=== PATIENT | female | born 1990 | race Caucasian/White ===

== ENCOUNTER 2024-10-22 04:26 | Emergency (ER) | payer BC, OTHER, SELFPAY ==
[2024-10-22 04:26] VITALS: BMI 31.3
[2024-10-22 04:32] VITALS: BP 164/92; PULSE 87; RESP 18; TEMP 37.1; O2SAT 99
--- NOTE | 2024-10-22 04:36 | XR_ITS ---
Examination: Abdomen sonogram, Limited Date and time of exam: October 22, 2024 at 0518 hrs. Indications: Right upper abdominal pain beginning several hours ago Technique: Real-time kern scale transabdominal sonographic images of the upper abdomen obtained. Findings: 12 mm gallstone Gallbladder wall 0.3 cm no edema Common bile duct 0.3 cm Pancreatic head 2.7 cm Liver 18.6 cm fatty infiltration no focal liver lesions Normal hepatopedal portal venous flow Patent IVC Impression: Cholelithiasis, negative for cholecystitis
--- NOTE | 2024-10-22 04:37 | PD.EDRME ---
Rapid Medical Screening Exam RME Arrival date/time: 10/22/24 04:26 34-year-old female past medical history of bariatric surgery 2 years ago presents emergency department complaining of epigastric pain that radiates towards back with nausea and vomiting that started today. Chief Complaint: Abdominal Pain Time Seen by Provider: 10/22/24 04:32 Vital signs: Vital Signs Temperature 98.7 F 10/22/24 04:32 Pulse Rate 87 10/22/24 04:32 Respiratory Rate 18 10/22/24 04:32 Blood Pressure 164/92 H 10/22/24 04:32 Pulse Oximetry (%) 99 10/22/24 04:32 Oxygen Delivery Method Room Air 10/22/24 04:32 Vital signs reviewed by provider: Yes
[2024-10-22] MEDS: METOCLOPRAMIDE INJ 5 MG/ML VIAL 2 ML 10 MG IM (04:45)
--- NOTE | 2024-10-22 04:48 | PC.NURSE ---
At this time pt states that her pain has decreased. Asked to hold off on pain medication at this time.
[2024-10-22] MEDS: KETOROLAC INJ 60 MG/2 ML VIAL 30 MG IM (05:18)
--- NOTE | 2024-10-22 05:19 | PC.NURSE ---
Before going to US, pt alerted RN that she had changed her mind and wanted pain medication. Stated pain increased to 10/10. Toradol given.
--- NOTE | 2024-10-22 06:19 | PRELIM_ITS ---
Gallbladder ultrasound. October 22, 2024 at 0518 hours Clinical history: Epigastric pain that radiate s towards back.Technique: Grayscale and color flow images of the abdomen are provided. Comparison:No prior study is available for comparison.Findings:The liver is enlarged measuring 18.5 cm with patchy increased echogenicity, likely represent fatty infiltration. No mass or ductal dilatation. The gallbl adder is distended and demonstrates gallstone measuring 1.2 cm is noted, without evidence of gallblad diane wall thickening or pericholecystic fluid.Sonographic Bright sign is positive. The common duct is normal in caliber at 3mm. The body and tail of pancreas are obscured by gas. No free fluid is demonst rated on the submitted images.Impression:Cholelithiasis with acute cholecystitis cannot be excluded.S uggest follow-up with HIDA scan, if clinically indicated.Hepatomegaly with fatty infiltration. Report Electronically Signed By: Sameer Piper 10/22/2024 6:19:21 AM [EST]
--- NOTE | 2024-10-22 06:36 | PD.EDABDPN ---
ED Abdominal Pain RME/HPI General Chief Complaint: Abdominal Pain Stated complaint: ABD PAIN Time seen by provider: 10/22/24 04:32 Arrival date/time: 10/22/24 04:26 34-year-old female with a history of bariatric surgery presents to the emergency room with a chief complaint of 7 out of 10 epigastric pain that radiates towards the back. Patient also states of nausea and vomiting that began this morning. Source: patient Mode of arrival: ambulatory Limitations: no limitations RME / HPI RME / HPI narrative: 10/22/24 04:26 34-year-old female past medical history of bariatric surgery 2 years ago presents emergency department complaining of epigastric pain that radiates towards back with nausea and vomiting that started today. Related Data Home Medications ?Medication ?Instructions ?Recorded ?Confirmed sertraline 50 mg tablet 50 mg PO QDAY 02/01/24 03/07/24 multivitamin 1 tab PO QDAY 03/07/24 03/07/24 Previous Rx's ?Medication ?Instructions ?Recorded hydrocortisone 2.5 % topical cream 1 applic [place] BID #30 grams 03/08/24 with perineal applicator (Anusol-HC) Allergies Allergy/AdvReac Type Severity Reaction Status Date / Time adhesive tape Allergy Severe Hives Verified 10/22/24 04:28 codeine Allergy Severe Hives Verified 10/22/24 04:28 hydrocodone bit Allergy Severe Hives Verified 10/22/24 04:28 Sulfa (Sulfonamide Allergy Severe Blurry Verified 10/22/24 04:28 Antibiotics) Vision tramadol Allergy Severe Hives Verified 10/22/24 04:28 Review of Systems Review of Systems Systems Reviewed: All systems reviewed, normal except as documented Constitutional Constitutional: Reports system reviewed and no additional complaints, except as documented, Denies fatigue, Denies fever(s), Denies headache(s) and Denies weakness Eyes Eyes: Reports system reviewed and no additional complaints, except as documented, Denies blurry vision and Denies change in vision ENT Ears, Nose, Mouth, and Throat: Reports system reviewed and no additional complaints, except as documented, Denies otalgia, Denies headache(s), Denies nasal congestion, Denies throat swelling and Denies vertigo Cardiovascular Cardiovascular: Reports system reviewed and no additional complaints, except as documented, Denies chest pain, Denies dyspnea and Denies dyspnea on exertion Respiratory Respiratory: Reports system reviewed and no additional complaints, except as documented, Denies chest congestion, Denies cough, Denies dyspnea, Denies dyspnea on exertion and Denies wheezing Gastrointestinal Gastrointestinal: Reports system reviewed and no additional complaints, except as documented, Reports abdominal pain, Reports cramping, Reports dyspepsia, Reports nausea and Reports vomiting Genitourinary Genitourinary: Reports system reviewed and no additional complaints, except as documented Musculoskeletal Musculoskeletal: Reports system reviewed and no additional complaints, except as documented and Denies back pain Integumentary/Breasts Skin/Breast: Reports system reviewed and no additional complaints, except as documented and Denies wounds Neurologic Neurologic: Reports system reviewed and no additional complaints, except as documented, Denies confusion, Denies headache(s), Denies lack of coordination, Denies vertigo and Denies weakness Psychiatric Psychiatric: Reports system reviewed and no additional complaints, except as documented, Denies anxiety, Denies confusion, Denies depression, Denies paranoia, Denies suicidal ideation and Denies tactile hallucinations Endocrine Endocrine: Reports system reviewed and no additional complaints, except as documented and Denies fatigue Hematologic/Lymphatic Hematologic/Lymphatic: Reports system reviewed and no additional complaints, except as documented and Denies lymphadenopathy Allergic/Immunologic Allergic/Immunologic: Reports system reviewed and no additional complaints, except as documented, Denies throat swelling, Denies urticaria and Denies wheezing Past Medical History Past Medical History NEUROLOGIC: Negative Neurological Disorders or Seizures CARDIAC: Positive Cardiac Disorders and Hypertension (no longer on meds after weight loss); Negative Congestive Heart Failure, Edema, Cellulitis or Varicose Veins RESPIRATORY: Positive Asthma and Sleep Apnea; Negative Chronic Obstructive Pulmonary Disease (COPD), Tuberculosis or Pulmonary Embolism GASTROINTESTINAL: Positive Gastrointestinal Disorders (gastric sleeve surgery), Hemorrhoids, Gastroesophageal Reflux Disease (no longer has since weight loss) and Obesity; Negative Hepatitis GENITOURINARY: Negative Genitourinary Disorders or Renal Disease REPRODUCTIVE: Positive Previous Pregnancies MUSCULOSKELETAL: Positive Musculoskeletal Disorders (carpal tunnel) and Carpal Tunnel Syndrome ENDOCRINE: Negative Endocrine Disorders, Diabetes Mellitus Type 1 or Diabetes Mellitus Type 2 HEMATOLOGIC: Negative Blood Disorders or Sickle Cell Disease PSYCHO/SOCIAL: Positive Depression and Anxiety OTHER HISTORY: Positive Hospitalization, Blood Transfusions and Chicken Pox; Negative Autoimmune Disease, Shingles, Falls, Blood Transfusion Reaction, Anesthesia Reactions, Chemotherapy, Radiation Therapy, MRSA, Measles, Mumps or Cancer Family History FAMILY HISTORY: Positive Family Psychiatric Problems, Family Respiratory Disorders, Family Cardiac Disorders, Family Surgery and Family Anesthesia Reaction; Negative Family Gastrointestinal Problems or Family Cancer Surgical History SURGICAL: Positive Abdominal Surgery (gastric sleeve), Hysterectomy and Section; Negative Pacemaker Social History SMOKING STATUS: Never smoker ED Exam General Limitations: Present no limitations General appearance: Present alert and in no apparent distress Head Head exam: Present atraumatic Eye Eye exam: Present normal appearance, PERRL and EOMI ENT ENT exam: Present normal exam, normal oropharynx and mucous membranes moist Neck Neck exam: Present normal inspection, full ROM and trachea midline Chest Chest inspection: Present normal inspection and symmetric chest wall rise Respiratory Respiratory exam: Present normal lung sounds bilaterally Cardiovascular Cardiovascular exam: Present regular rate, normal rhythm and normal heart sounds Abdominal Exam Abdominal exam: Present soft, tenderness and normal bowel sounds; Absent distention, guarding, rebound, rigidity, Bright's sign, Rovsing's sign or tenderness at McBurney's Point Abdominal tenderness: Present RUQ and moderate Extremities Exam Extremities exam: Present normal inspection and full ROM Back Exam Back exam: Present normal inspection and full ROM Neurological Exam Neurological exam: Present alert, oriented X3 and CN II-XII intact Psychiatric Psychiatric exam: Present normal affect and normal mood Skin Skin exam: Present warm, dry, intact and normal color Course Quality Measures none Orders Category Date Time Status US gall bladder Stat Exams 10/22/24 04:36 Completed CBC Stat Lab 10/22/24 05:59 Completed CMP [Comprehensive Metabolic Panel] Stat Lab 10/22/24 05:59 Completed HCG,Qualitative Serum Stat Lab 10/22/24 05:59 Completed Lipase Stat Lab 10/22/24 05:59 Completed Urinalysis, C/S if Indicated Stat Lab 10/22/24 05:25 Completed Ketorolac Inj [Toradol Inj] Med 10/22/24 04:36 Discontinued 30 mg IM X1 ONE Metoclopramide Inj [Reglan Inj] Med 10/22/24 04:36 Discontinued 10 mg IM X1 ONE Vital Signs Vital signs: Vital Signs Temperature 98.7 F 10/22/24 04:32 Pulse Rate 87 10/22/24 04:32 Respiratory Rate 18 10/22/24 04:32 Blood Pressure 164/92 H 10/22/24 04:32 Pulse Oximetry (%) 99 10/22/24 04:32 Oxygen Delivery Method Room Air 10/22/24 04:32 O2 saturation 99% within normal limits Abdominal Pain MDM MDM Narrative MDM Narrative:: 34-year-old female with a history of bariatric surgery presents to the emergency room with a chief complaint of 7 out of 10 epigastric pain that radiates towards the back. Patient also states of nausea and vomiting that began this morning. Clinically the patient appears nontoxic and in no apparent distress. Physical examination during my reevaluation shows a 2 out of 10 epigastric pain. Patient states the medication she was given initially really called her pain and she has no longer nauseous or has vomited. Ultrasound was completed and shows a 12 mm gallstone but negative cholecystitis. CBC and CMP were within normal limits bilirubin and liver enzymes are within normal limits. Patient was educated to follow-up with her primary care provider as a referral to a general surgeon to remove this gallstone in an outpatient setting is warranted. Patient was educated return to the emergency room for any episode of worsening signs or symptoms. Patient data External records reviewed:: [facility] previous records Clinical information provided by:: patient Social determinants that could affect healthcare access:: none Patient has the following chronic illnesses:: No chronic illness How is presenting disease/condition affected by chronic disease/condition?: no chronic disease Evaluation data The following diagnostics were reviewed and interpreted by me:: lab results and radiology exam(s) Lab and/or radiology exams considered but not ordered:: Labs and radiology exams considered and ordered Interpretation Summary: Ultrasound gallbladder-12 mm gallstone cholelithiasis Medications / Prescriptions Medications or Prescriptions considered but not ordered:: Medication given Medication administrations:: Medication Administration History Discontinued Medications Ketorolac Tromethamine (Ketorolac Inj 60 Mg/2 Ml Vial) 30 mg IM X1 ONE Stop: 10/22/24 04:37 Last Admin: 10/22/24 05:18 Dose: 30 mg Documented By: CHINA Metoclopramide HCl (Metoclopramide Inj 5 Mg/Ml Vial 2 Ml) 10 mg IM X1 ONE; Protocol Stop: 10/22/24 04:37 Last Admin: 10/22/24 04:45 Dose: 10 mg Documented By: CHINA Medication given Consultations Consultation(s) initiated? (list below): No Diagnosis Differential diagnosis abdominal pain: abdominal pain, acute appendicitis, diverticulitis, gastroenteritis and other (Cholelithiasis/cholecystitis) Most likely diagnosis given after review of the tests above:: Cholelithiasis Admission Indicated Admission indicated?: not indicated Admission Request Was there a request for admission?: No Disposition Plan Disposition Plan: Discharge Discharge Attestation Discharge Attestation: The patient and all family members were given an opportunity to ask questions and understood the discharge instructions. Discharge instructions specifically effects, indications for sooner follow up or return to the emergency department, and the expected course of current diagnosis. Patient condition: Stable Discharge Plan Plan Patient Disposition: HOME (Self Care) Disposition Comment: Stable Prescriptions/Referrals Prescriptions/Med Rec: No Action sertraline 50 mg tablet 50 mg PO QDAY Patient Comments: TAKE 1 TABLET BY MOUTH EVERY DAY multivitamin Tablet 1 tab PO QDAY hydrocortisone [Anusol-HC] 2.5 % cream with perineal applicator 1 applic MN BID Qty: 30 3RF Referrals: Dorita Peres MD [Primary Care Provider] - In 1 week Problem List Clinical Impression: Gallstones Patient/Caregiver Discharge Instructions Education Materials: What Are Gallstones, Treating Gallstones, ED Gallstones with Biliary Colic Additional Instructions: Please follow-up with your primary care provider in the next 24 to 48 hours. Your ultrasound showed it 12 mm gallstone in your gallbladder. This is the cause of your abdominal pain. At this time there is no obstruction or infection. You will need to follow-up with your primary care provider and get a referral to a general surgeon to remove a in an outpatient setting. For any evidence of worsening signs or symptoms or if your pain worsens please return to the emergency room immediately Print Language: Slovenian Stand Alone Forms: Tiffany Award Info., Patient Portal Info Letter WILLIAMS/AMINA Supervising Physician MARKOS Supervising Physician: Dr. Berry
[2024-10-22 06:50] LABS: Collection Type, Urine Clean Catch
[2024-10-22 06:52] LABS: Basophils # (Auto) 0.1 Thou/mm3 (0.0-0.2); Basophils % (Auto) 0 % (0-2.5); Eosinophils # (Auto) 0.1 Thou/mm3 (0.0-0.5); Eosinophils % (Auto) 0 % (0-10); Hematocrit 36.4 % (36.0-46.0); Hemoglobin 11.7 g/dL (12.0-16.0); Immature Granulocytes % (Auto) 1 % (0-0); Immature Granulocytes Auto 0.06 Thou/mm3 (0.00-0.00); Lymphocytes # (Auto) 0.8 Thou/mm3 (1.0-4.8); Lymphocytes % (Auto) 6 % (10-50); Mean Corpuscular HGB Conc 32.1 g/dl (31.0-37.0); Mean Corpuscular Hemoglobin 28.8 pg (25.0-35.0); Mean Corpuscular Volume 90 fL (80-100); Monocytes # (Auto) 0.7 Thou/mm3 (0.0-0.8); Monocytes % (Auto) 6 % (0-12); Neutrophils % (Auto) 87 % (37-80); Nucleated Red Blood Cell % 0 /100 WBC (0); Platelet Count 296 Thou/mm3 (140-440); RDW Standard Deviation 46.5 fL (36.4-46.3); Red Blood Count 4.06 Miln/mm3 (4.00-5.20); White Blood Count 12.6 Thou/mm3 (3.6-11.0)
[2024-10-22 07:33] LABS: Alanine Aminotransferase 28 U/L (10-49); Albumin, Serum 4.6 gm/dL (3.5-5.0); Alkaline Phosphatase 62 U/L (46-116); Anion Gap 7 (7-16); Aspartate Amino Transferase 54 U/L (0-34); BUN/Creatinine Ratio 20 Ratio (12-20); Bilirubin,Total 0.9 mg/dL (0.3-1.2); Blood Urea Nitrogen 18 mg/dL (9-23); Calcium 9.2 mg/dL (8.3-10.6); Calcium (Corrected) 9.2 mg/dL (8.5-10.1); Carbon Dioxide 29.4 mMol/L (20.0-31.0); Chloride 105 mMol/L (98-107); Creatinine (Component) 0.9 mg/dL (0.6-1.3); Estimated Creatinine Clearance 101.8 mL/min (>60); Globulin 2.3 gm/dL (2.3-3.5); Glucose 99 mg/dL (74-106); Lipase 36 U/L (12-53); Osmolality,Calculated 283 (275-295); Potassium 3.8 mMol/L (3.4-5.1); Sodium 141 mMol/L (136-145); Total Protein 6.9 gm/dL (5.7-8.2); eGFR > 60 See Note
[2024-10-22 07:34] LABS: Bilirubin,Urine Negative (Negative); Blood,Urine Trace (Negative); Clarity,Urine Clear (Clear/Hazy); Color,Urine Lt-Yellow (Lt Yel-Yel); Culture Indicated,Urine Not Indicated; Glucose, Urine Negative (Negative); Ketones,Urine Negative (Negative); Leukocyte Esterase,Urine Negative (Negative); Nitrite,Urine Negative (Negative); Protein,Urine Trace (Neg - Trace); RBC,Urine 2 /hpf (0-3); Specific Gravity,Urine 1.028 (1.001-1.035); Squamous Epithelial Cell,Urine 4 /hpf (0-5); Urobilinogen,Urine Negative mg/dL (0.0-1.0); WBC,Urine 1 /hpf (0-5)
[2024-10-22 07:51] LABS: HCG,Qualitative Serum Negative
== END 2024-10-22 07:30 | disposition home or self-care (01) ==
PROVIDERS: Emergency Provider Emergency Medicine; PCP Family Medicine
DX: K80.20 Calculus of gallbladder without cholecystitis without obstruction (principal); Z98.84 Bariatric surgery status
CPT/HCPCS: 36415; 76705; 80053; 81001; 83690; 84703; 85025; 96372; 99284; J1885; J2765

== ENCOUNTER 2024-12-19 07:55 | Day surgery (SDC) | payer OTHER, SELFPAY ==
--- NOTE | 2024-12-17 07:00 | EKG_ITS ---
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
[2024-12-17 07:06] VITALS: BMI 30.4
[2024-12-17 08:17] LABS: Basophils # (Auto) 0.1 Thou/mm3 (0.0-0.2); Basophils % (Auto) 1 % (0-2.5); Eosinophils # (Auto) 0.1 Thou/mm3 (0.0-0.5); Eosinophils % (Auto) 1 % (0-10); Hematocrit 39.5 % (36.0-46.0); Hemoglobin 12.8 g/dL (12.0-16.0); Immature Granulocytes % (Auto) 0 % (0-0); Immature Granulocytes Auto 0.02 Thou/mm3 (0.00-0.00); Lymphocytes # (Auto) 2.5 Thou/mm3 (1.0-4.8); Lymphocytes % (Auto) 31 % (10-50); Mean Corpuscular HGB Conc 32.4 g/dl (31.0-37.0); Mean Corpuscular Volume 89 fL (80-100); Monocytes # (Auto) 0.4 Thou/mm3 (0.0-0.8); Monocytes % (Auto) 6 % (0-12); Neutrophils # (Auto) 4.9 Thou/mm3 (1.8-7.7); Neutrophils % (Auto) 62 % (37-80); Nucleated Red Blood Cell % 0 /100 WBC (0); Platelet Count 305 Thou/mm3 (140-440); RDW Standard Deviation 45.2 fL (36.4-46.3); Red Blood Count 4.42 Miln/mm3 (4.00-5.20)
[2024-12-17 08:30] LABS: Alanine Aminotransferase 13 U/L (10-49); Albumin, Serum 4.3 gm/dL (3.5-5.0); Albumin/Globulin Ratio 1.8 (1.2-2.2); Alkaline Phosphatase 57 U/L (46-116); Anion Gap 6 (7-16); Aspartate Amino Transferase 16 U/L (0-34); BUN/Creatinine Ratio 19 Ratio (12-20); Bilirubin,Total 0.5 mg/dL (0.3-1.2); Blood Urea Nitrogen 17 mg/dL (9-23); Calcium 9.4 mg/dL (8.3-10.6); Calcium (Corrected) 9.4 mg/dL (8.5-10.1); Carbon Dioxide 30.2 mMol/L (20.0-31.0); Chloride 107 mMol/L (98-107); Creatinine (Component) 0.9 mg/dL (0.6-1.3); Estimated Creatinine Clearance 100.5 mL/min (>60); Globulin 2.4 gm/dL (2.3-3.5); Glucose 97 mg/dL (74-106); Osmolality,Calculated 286 (275-295); Potassium 4.4 mMol/L (3.4-5.1); Sodium 143 mMol/L (136-145); Total Protein 6.7 gm/dL (5.7-8.2); eGFR > 60 See Note
[2024-12-19] VITALS (9 sets, daily range): BP systolic 121–168; BP diastolic 87–105; PULSE 56–89; RESP 12–18; TEMP 36.7; O2SAT 95–100; BMI 29.7
--- NOTE | 2024-12-19 09:40 | ESOP_ITS ---
Date of Procedure 12/19/24 Pre Op Diagnosis Symptomatic cholelithiasis Post Op Diagnosis Cholelithiasis with cholecystitis Procedure Laparoscopic cholecystectomy Findings Moderately distended gallbladder with a marble sized gallstone and chronic cholecystitis Procedure Description Patient was brought into the operating room in supine position. After administration of general endotracheal anesthesia abdomen was prepped and draped in standard surgical manner. A Veress needle was inserted through the umbilicus and pneumoperitoneum was obtained up to 15 mmHg. The Veress needle was then removed, a 5 mm infraumbilical incision was made and the 5mm trocar was inserted. Laparoscopic camera was placed. Under direct visualization a lapa roscopic camera a 10 mm trocar was placed in subxiphoid and two 5 mm trocars placed in right upper quadrant. The gallbladder was identified and was noted to be moderately distended with a gallstone near the infundibulum of the gallbladder and evidence of chronic cholecystitis. It was retracted cephalad and laterally. Dissection started near the infundibulum of gallbladder where cystic duct and gallbladder junction clearly identified. The cystic duct was circumferentially dissected off the peritoneum and surrounding inflammatory tissue. The critical view of safety was clearly demonstrated. Cystic duct was then divided between 2 endoclips proximally and one distally. The cystic artery was similarly dissected and divided. The gallbladder was then from the liver bed using electrocautery. The gallbladder was then placed inside an Endo Catch and removed from the abdomen utilizing subxiphoid trocar site. The area was copiously and thoroughly washed and irrigated, all the fluid was suctioned and the suction fluid returned clear. Hemostasis achieved using electrocautery. Endoclips noted be in place and intact without any bleeding or any leakage. Hemostasis was adequate and satisfactory. The subxiphoid trocar sites fascial defect was closed with 0 Vicryl using Endo Closure device. Instruments and trocars removed, pneumoperitoneum was evacuated and the incisions closed with 4-0 Monocryl in subcuticular fashion. Instrument needle and sponge counts were all reported to be correct X2. Patient tolerated the procedure well, was extubated, breathing spontaneously and without difficulty and was transferred to postanesthesia care in stable condition. The gallbladder was opened on the back table and per patient request the gallstone was placed in a specimen cup to be given to the patient. Anesthesia GETA and local Pathology / specimen Other (Gallbladder) Estimated Blood Loss 10 Condition Stable Disposition PACU Surgeon Carrillo Hough MD Surgical Staff Operation Date: 12/19/24 10:15 Case Staff BROKE BEATER MACHINE OPERATOR: Gilbert Carens RNdouble end tenon operator: Gail Mcclellan
--- NOTE | 2024-12-19 09:40 | SUR.PHASEI ---
0940 Patient arrived to recovery resting comfortably in [facility], on oxygen 8L via oxy mask with an oral airway in place, breathing unlabored, vital signs stable, dressing intact to abdomen; dermabond, no bleeding noted, lung sounds clear upon auscultation, bilateral radial pulses present when palpated, report received from Ceasar VILLA and Chasity/Yonathan MCKEON.
[2024-12-19] MEDS: ONDANSETRON INJ 2 MG/ML INJ 2 ML 4 MG IV (10:02)
[2024-12-19] MEDS: ACETAMINOPHEN IVPB 1,000 MG/100 ML VIAL 250 MG IV (10:04)
--- NOTE | 2024-12-19 11:07 | SUR.PHASEII ---
1107 Patient meets discharge criteria from recovery, awake and alert, breathing unlabored, vital signs stable, dressing intact; no bleeding noted, per patient her pain is tolerable, patient drinking 7up; tolerated well, denies nausea, patient assisted with dressing into her clothing by her , discharge instructions given to patient and patients with teach-back approach, bother receptive, patient signed discharge instructions. Patient given all her belongings prior to discharge, transported via wheelchair and left in a private vehicle.
== END 2024-12-19 11:07 | disposition home or self-care (01) ==
PROVIDERS: PCP Family Medicine; Referring Provider Surgery; Visit Provider Surgery
PROC: 0FT44ZZ Resection of Gallbladder, Percutaneous Endoscopic Approach (ICD-10-PCS; CPT 47562; principal; 2024-12-19 10:00)
DX: K80.10 Calculus of gallbladder with chronic cholecystitis without obstruction (principal); Z01.810 Encounter for preprocedural cardiovascular examination
CPT/HCPCS: 47562; 36415; 80053; 85025; 93005; A4217; A4649; J0131; J0694; J1100; J1885; J2250; J2405; J2704; J3010; J3490; J1596

== ENCOUNTER → 2025-01-17 | Outpatient (CLI) | payer OTHER, SELFPAY ==
[2025-01-17 16:08] LABS: Collection Type, Urine Clean Catch
[2025-01-17 17:12] LABS: Bilirubin,Urine 1+ (Negative); Blood,Urine Negative (Negative); Clarity,Urine Clear (Clear/Hazy); Color,Urine Drk-Yellow (Lt Yel-Yel); Glucose, Urine Negative (Negative); Ketones,Urine Negative (Negative); Leukocyte Esterase,Urine Negative (Negative); Nitrite,Urine Positive (Negative); Protein,Urine Negative (Neg - Trace); RBC,Urine 4 /hpf (0-3); Specific Gravity,Urine 1.032 (1.001-1.035); Squamous Epithelial Cell,Urine 9 /hpf (0-5); WBC,Urine 1 /hpf (0-5)
== END | disposition home or self-care (01) ==
LOC: SLDO 15:42
PROVIDERS: PCP Registered Nurse; Referring Provider Registered Nurse; Visit Provider Registered Nurse
DX: N39.0 Urinary tract infection, site not specified (principal)
CPT/HCPCS: 81001; 87086